=== PATIENT | male | born 1945 | race Caucasian/White ===

== ENCOUNTER 2016-06-23 13:26 | Emergency (ER) | payer MEDICARE ==
[2016-06-23 14:19] LABS: BASO % 0.2 % (0.2-1.2); EOS # 0.1 10_X3_uL (0.0-0.5); EOS % 2.6 % (0.8-7.0); GRAN # 2.8 10_X3_uL (1.8-5.4); GRAN % 60.9 % (34.0-67.9); HEMATOCRIT 44.3 % (40-51); HEMOGLOBIN 15.2 g/dL (13.7-17.5); LYMPH # 1.3 10_X3_uL (1.3-3.6); LYMPH % 27.4 % (21.8-53.1); MEAN CORPUSCULAR HEMOGLOBIN 32.2 pg (27.0-33.0); MEAN CORPUSCULAR HGB CONC 34.3 g/dL (32.0-36.0); MEAN CORPUSCULAR VOLUME 93.9 fL (79-92); MEAN PLATELET VOLUME 9.8 fl (7.5-11.5); MONO # 0.4 10_X3_uL (0.3-0.8); MONO % 8.9 % (5.3-12.2); PLATELET COUNT 227 x10_3/uL (163-337); RED BLOOD COUNT 4.72 x10_6/uL (4.6-6.1); RED CELL DISTRIBUTION WIDTH 14.1 % (11.6-14.4); WHITE BLOOD COUNT 4.6 x10_3/uL (4.2-9.1)
[2016-06-23 14:29] LABS: BLOOD UREA NITROGEN 13 mg/dL (7-18); CALCIUM 8.7 mg/dL (8.7-10.7); CARBON DIOXIDE 28 mmol/L (21-32); CREATININE 0.9 mg/dL (0.6-1.3); GLUCOSE,RANDOM 122 mg/dL (70-99); POTASSIUM 3.8 mmol/L (3.5-5.1); SODIUM 138 mmol/L (136-145)
[2016-06-23 14:36] LABS: INR 1.2 (1.0-1.1); PARTIAL THROMBOPLASTIN TIME 25.9 SECONDS (21.8-28.4); PROTHROMBIN TIME (PATIENT) 11.6 SECONDS (9.6-10.8)
[2016-06-23 15:29] LABS: URINE BILIRUBIN 1+ (NEGATIVE); URINE BLOOD 1+ (NEGATIVE); URINE GLUCOSE (UA) NORMAL (NORMAL); URINE KETONE NEGATIVE (NEGATIVE); URINE LEUKOCYTE ESTERASE TRACE (NEGATIVE); URINE NITRATE NEGATIVE (NEGATIVE); URINE PROTEIN 1+ (NEGATIVE)
[2016-06-23 15:51] LABS: URINE RBC RARE /[HPF] (0-2); URINE SQUAMOUS EPITHELIAL CELL 0-10 /[HPF] (NONE SEEN); URINE WBC RARE /[HPF] (0-3); URINE YEAST FEW (NONE SEEN)
== END 2016-06-23 16:21 | disposition home or self-care (01) ==
LOC: ER 13:26
PROVIDERS: Emergency Medicine
DX: I63.9 Cerebral infarction, unspecified (principal); R53.1 Weakness; R41.0 Disorientation, unspecified; I10 Essential (primary) hypertension; F17.210 Nicotine dependence, cigarettes, uncomplicated; Z79.899 Other long term (current) drug therapy
CPT/HCPCS: 36415; 70450; 80048; 81001; 85025; 85610; 85730; 93005; 99284; 99285-25